=== PATIENT | male | born 1985 | race Caucasian/White ===

== ENCOUNTER 2024-06-25 09:37 | Emergency (ER) | payer BC, SELFPAY ==
[2024-06-25 09:41] VITALS: BP 121/75; PULSE 75; RESP 16; TEMP 36.9; O2SAT 100; BMI 29.3
--- NOTE | 2024-06-25 10:42 | ED_ITS ---
HPI - Eye Problem General Chief complaint: Eye Problems Stated complaint: l eye inj sent from urgent care Time Seen by Provider: 06/25/24 10:08 Source: patient Mode of arrival: ambulatory Limitations: no limitations History of Present Illness ED Provider: SANDRA HELMS PA-C HPI Narrative: 39 year old male with no significant pmhx presents to the ED today with complaints of ocular foreign body. Patient reports waking up this morning with irritation and tearing to his left eye. Upon looking in the mirror, he noticed a small red dot on his eye which was not present when he woke up to use the bathroom earlier in the night. He was evaluated at . Noted to have corneal FB without noted abrasion on fluorescein examination. The attempted removal with irrigation however was unsuccessful. He was sent to the ED for further evaluation. Patient does wear glasses however does not wear contact lenses. Denies any vision changes. Does not recall a situation where he would have gotten something stuck in his eye. He is wondering if it occurred in his sleep. Related Data Previous Rx's ?Medication ?Instructions ?Recorded erythromycin 5 mg/gram (0.5 %) eye 0.5 inch ophthalmic (eye) BID 5 06/25/24 ointment days #3.5 grams Allergies Allergy/AdvReac Type Severity Reaction Status Date / Time No Known Allergies Allergy Verified 06/25/24 09:42 Review of Systems Review of Systems: Constitutional: No fever, chills, fatigue, night sweats, weight changes ENT/Mouth: No ear pain, hearing loss, nasal congestion, sinus pain, rhinorrhea, sore throat Eyes: No eye pain, swelling, redness, vision changes, discharge, + left eye irritation/foreign body Cardio: No chest pain, palpitations, BOBO, orthopnea, peripheral edema Pulm: No SOB, cough, sputum, wheezing, dyspnea, hemoptysis GI: No nausea, vomiting, hematemesis, abdominal pain, diarrhea, constipation, hematochezia, melena : No irregular bleeding, dysuria, frequency, urgency, hesitancy, hematuria, flank pain, urinary flow changes, urinary incontinence or retention MSK: No back pain, neck pain, joint pain, myalgias Skin: No lesions, rashes Neuro: No weakness, numbness, paresthesias, LOC, dizziness, headache Psych: No anxiety/panic, depression, SI/HI, AH/VH All other systems reviewed and are negative. [facility] Past Medical History Attestation statement: The following information was validated with the patient. Source: old records reviewed and nursing notes reviewed Social History Social History Advance Directives: No Advance Directives Information Provided: No Do you have a plan to hurt others: No Plan Physical Exam Vital Signs: Vital Signs: Last Vital Signs Temp 98.5 F 06/25/24 09:41 Pulse 75 06/25/24 09:41 Resp 16 06/25/24 09:41 BP 121/75 06/25/24 09:41 Pulse Ox 100 06/25/24 09:41 O2 Del Method Room Air 06/25/24 09:41 BMI result Body Mass Index 29.3 Vital signs stable, afebrile. General: Well appearing, in no acute distress. Skin: Warm, dry, intact. No rashes or lesions. Head: Normocephalic, atraumatic. EENT: Left eye exam: No periorbital swelling. No enophthalmous or exopthalmous. EOMs intact without pain or entrapment. PERRLA. Negative photophobia. Small red circular fb noted to cornea at 4oclock. No conjunctival injection or chemosis noted to eye. No hazy cornea. Visual acuity OD 20/40, OS 20/50, b/l 20/25 On tetracaine exam, reuptake around noted foreign body. No abrasions noted.. no ulceration. no dendritic lesions. ? Neck: Supple without LAD. FROM. Trachea midline.? Cardiac: Chest wall symmetric. RRR. No MRG. No JVD. Lungs: Normal respiratory effort without accessory muscle use. CTA bilaterally. No rales, rhonchi, or wheezes.? Psych: Appropriate mood and affect. Responds appropriately to questions. Course Course Course Narrative: 1045 -- Corneal FB noted on exam. Attempted removal with irrigation and cotton swab tip on successfully. I attempted removal with 18 gauge needle and was able to remove the entire foreign body. Foreign body appears to be a tiny red dot, possibly a sparkle however the exact fb unknown. patient reports improvement in symptoms. no visual changes. Will cover patient with erythromycin ophthalmic ointment. Patient has remained stable throughout ED visit today. Discussed worrisome signs and symptoms and when to return to the ED. All questions answered at this time. Patient is agreeable with disposition and stable for discharge. Medical Decision Making Medical Decision Making MDM Narrative: 39 year old male with no significant pmhx presents to the ED today with complaints of ocular foreign body. Vital signs stable, afebrile. On exam, no periorbital swelling. No enophthalmous or exopthalmous. EOMs intact without pain or entrapment. PERRLA. Negative photophobia. Small red circular fb noted to cornea at 4oclock. No conjunctival injection or chemosis noted to eye. No hazy cornea. Visual acuity OD 20/40, OS 20/50, b/l 20/25. On tetracaine exam, reuptake around noted foreign body. No abrasions noted.. no ulceration. no dendritic lesions. Differential diagnosis includes corneal abrasion, corneal foreign body. Presentation not consistent with viral vs bacterial conjunctivitis, allergic conjunctivitis, preseptal or orbital cellulitis, acute angle closure glaucoma, iritis, keratitis, scleritis, uveitis, ophthalmicus. Plan for tetracaine/fluorescein examination, foreign body removal, disposition Differential Diagnosis Differential Diagnoses: The differential diagnosis associated with the presentation includes As above Admission/Observation Not indicated Prescription Management I considered prescription management with: Antibiotic (Erythromycin ophthalmic ointment) Social Determinants Patient?s care significantly limited by Social Determinants of Health including: Other Social Determinant of Health Procedures FB Removal Eye Time Out performed: Yes Location: eye (L) Topical anesthetic used: tetracaine Foreign body: other Evidence of corneal penetration: No Technique: irrigation, cotton tip swab and needle Procedure performed under: direct visualization with magnification Post-procedure medication: ophthalmic antibiotic Patient tolerated procedure: well Discharge Plan Discharge Clinical Impression: Corneal foreign body Qualifiers: Encounter type: initial encounter Laterality: left Qualified Code(s): T15.02XA - Foreign body in cornea, left eye, initial encounter Patient Disposition: Home, Self-Care Instructions: Eye Foreign Body (ED) Additional Instructions: You were seen in the ED today for evaluation of ocular foreign body. This foreign body was identified and removed from your left eye successfully. Erythromycin ointment has been sent to your pharmacy. Please apply this to your eye twice daily to prevent infection. Follow up with PCP and or equip maint eng as needed. Return with new or worsening symptoms. In the case of an emergency call 911. Prescriptions: New erythromycin 5 mg/gram (0.5 %) ointment 0.5 inch ophthalmic (eye) BID 5 Days Qty: 3.5 0RF Referrals: Collins Sheridan [Physician] - Matthew Beltrán MD [Primary Care Provider] - Print Language: Turkmen
[2024-06-25] MEDS: Tetracaine HCl/PF 0.5% Oph Sol 4 ML DROPS 1 DROP EYE-LEFT (10:45)
[2024-06-25] MEDS: Fluorescein Sodium STRIP 1 STRIP EYE-LEFT (10:45)
[2024-06-25 11:09] VITALS: BP 110/52; PULSE 63; RESP 18; TEMP 36.6; O2SAT 100
== END 2024-06-25 11:10 | disposition home or self-care (01) ==
PROVIDERS: Emergency Provider Emergency Medicine; PCP Internal Medicine
DX: T15.02XA Foreign body in cornea, left eye, initial encounter (principal); W44.9XXA Unspecified foreign body entering into or through a natural orifice, initial encounter; Y93.9 Activity, unspecified; Y92.9 Unspecified place or not applicable; Y99.9 Unspecified external cause status
CPT/HCPCS: 65220; 99282; 99284